=== PATIENT | female | born 1970 | race Caucasian/White ===

== ENCOUNTER 2016-11-16 11:31 | Emergency (ER) | payer OTHER ==
[~2016-11-16] VITALS: Ht 170.2 cm; Wt 72.6 kg
[2016-11-16 11:36] VITALS: BP 126/75
[2016-11-16] MEDS ORDERED: LIDOCAINE VISCOUS 2% UD 15 ML UDC MM ONE (12:30)
[2016-11-16] MEDS ORDERED: ACETAMINOPHEN ES 500 MG TABLET PO ONE (12:30)
[2016-11-16] MEDS ORDERED: PENICILLIN G BENZATHINE 2.4 MMU/4 ML ML IM ONE ×2 (12:30→12:35)
[2016-11-16] MEDS ORDERED: LIDOCAINE VISCOUS 2% UD 15 ML UDC ONE (12:35)
[2016-11-16] MEDS ORDERED: ACETAMINOPHEN ES 500 MG TABLET ONE (12:35)
== END 2016-11-16 13:26 | disposition home or self-care (01) ==
LOC: ER 11:34
DX: Z88.6 Allergy status to analgesic agent (principal); J02.0 Streptococcal pharyngitis; B95.5 Unspecified streptococcus as the cause of diseases classified elsewhere
CPT/HCPCS: 96372; 99283; A4606; J0558; Z7610